=== PATIENT | male | born 1940 | race Caucasian/White ===

== ENCOUNTER 2019-06-23 03:40 | Emergency (ER) | payer OTHER ==
[~2019-06-23] VITALS: Ht 182.9 cm; Wt 90.7 kg
[~2019-06-23 03:40] MED LIST: ADVIL CHIL100 MG/5 M PO; ASPIRIN CHILDRE81 MG PO; ATRUD HHN; DULCOLAX10 M1 RC; FLEET ENEMA135 ML PR; GOOD NEIGH1200 MG/15 PO; HUMALOG100 UNIT/1 SQ; INS7030 SC; LACTOBACILLUS GT; LEVAQUIN500 M1 PO; LIPITOR40 MG PO; LOPRESSOR50 M1 PO; MAGNESIUM OXID400 M1 PO; NYSTATIN15 GM TOP; PECTIN GT
[2019-06-23 03:46] VITALS: Ht 182.9 cm; Wt 90.7 kg
[2019-06-23 04:32] LABS: BASOPHIL % 0.6 % (0-2); PLATELET COUNT 323 x10^3mcL (130-400)
[2019-06-23 04:35] LABS: CALCIUM 9.4 mg/dL (8.5-10.1); CARBON DIOXIDE 30.8 mmol/L (21-32); CHLORIDE SERUM 101 mmol/L (98-107); CREATININE SERUM 0.8 mg/dL (0.7-1.3); GLUCOSE SERUM 155 mg/dL (74-106); POTASSIUM SERUM 4.1 mmol/L (3.5-5.1); SODIUM SERUM 134 mmol/L (136-145)
[2019-06-23 04:40] LABS: ALKALINE PHOSPHATASE 130 U/L (46-116); ALT/SGPT 46 U/L (16-63); AST/SGOT 24 U/L (15-37); BILIRUBIN TOTAL 0.27 mg/dL (0.20-1.00); TOTAL PROTEIN, SERUM 6.5 g/dL (6.4-8.2)
[2019-06-23 04:41] LABS: ALBUMIN 2.8 g/dL (3.4-5.0)
[2019-06-23 05:35] LABS: CK-MB < 0.5 ng/mL (0-3.6); CREATINE KINASE 21 U/L (39-308)
[2019-06-23 06:55] VITALS: BP 133/69
== END 2019-06-23 08:12 | disposition short-term general hospital (02) ==
LOC: ED 03:40 → DU 05:23 → ED 08:12
PROVIDERS: Emergency Medicine
DX: J44.1 Chronic obstructive pulmonary disease with (acute) exacerbation (principal); R09.02 Hypoxemia; I10 Essential (primary) hypertension; E11.9 Type 2 diabetes mellitus without complications; Z98.890 Other specified postprocedural states; Z88.5 Allergy status to narcotic agent
CPT/HCPCS: 36600; J2930; Q0092